=== PATIENT | male | born 1995 | race Caucasian/White ===

== ENCOUNTER 2020-07-20 19:06 | Emergency (ER) | payer BC ==
[2020-07-20] MEDS ORDERED: Lidocaine 1% 10 ML MDV INJECT ONE (19:23)
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
== END 2020-07-20 20:20 | disposition home or self-care (01) ==
LOC: JD.ED 19:06
DX: S81.811A Laceration without foreign body, right lower leg, initial encounter (principal); Z91.048 Other nonmedicinal substance allergy status; V19.9XXA Pedal cyclist (driver) (passenger) injured in unspecified traffic accident, initial encounter
CPT/HCPCS: 12035; 99282; J2001; 99283

== ENCOUNTER 2023-08-01 08:54 | Emergency (ER) | payer BC ==
[2023-08-01 09:34] LABS: BASOPHILS PERCENT AUTO 0.2 % (0.0-1.0); EOSINOPHILS PERCENT AUTO 0.3 % (0.0-6.0); HEMATOCRIT 44.4 % (42.0-52.0); HEMOGLOBIN 15.6 gm/dl (14.0-18.0); IMMATURE GRAN ABSOLUTE AUTO 0.02 K/mm3 (0.00-0.05); IMMATURE GRAN PERCENT AUTO 0.2 % (0.0-0.4); LYMPHOCYTES ABSOLUTE AUTO 2.4 K/mm3 (1.0-4.8); LYMPHOCYTES PERCENT AUTO 25.9 % (24.0-44.0); MEAN CORPUSCULAR HEMOGLOBIN 31.7 pg (28.0-32.0); MEAN CORPUSCULAR HGB CONC 35.1 g/dl (32.0-36.0); MEAN CORPUSCULAR VOLUME 90.2 fl (83.0-99.0); MEAN PLATELET VOLUME 8.6 fl (9.4-12.4); MONOCYTES ABSOLUTE AUTO 0.4 K/mm3 (0.0-0.8); MONOCYTES PERCENT AUTO 3.8 % (0.0-8.0); NEUTROPHILS ABSOLUTE AUTO 6.3 K/mm3 (1.8-7.7); NEUTROPHILS PERCENT AUTO 69.6 % (41.0-71.0); PLATELET COUNT,PLT 312 K/mm3 (150-400); RED BLOOD CELL COUNT 4.92 M/mm3 (4.52-5.90); WHITE BLOOD CELL COUNT,WBC 9.12 K/mm3 (3.9-11.3)
[2023-08-01 09:56] LABS: A/G RATIO 1.1 (1-2); ALANINE AMINOTRANSFERASE,ALT 31 U/L (16-63); ALKALINE PHOSPHATASE 59 U/L (46-116); ANION GAP 13.9 (5-15); ASPARTATE AMNIOTRANSFERASE,AST 15 U/L (15-37); BILIRUBIN TOTAL 0.6 mg/dL (0.2-1.0); BLOOD UREA NITROGEN,BUN 8 mg/dL (7-18); C-REACTIVE PROTEIN <0.2 mg/dL (<1.0); CALCIUM 8.8 mg/dL (8.5-10.1); CARBON DIOXIDE,CO2 26 mEq/L (21-32); CHLORIDE,CL 104 mEq/L (98-107); EST CRCL DRUG DOSING (CG) 117.13 mL/min; ESTIMATED GFR 105 mL/min (>60); GLUCOSE RANDOM 117 mg/dL (70-99); LIPASE 19 U/L (16-77); MAGNESIUM 1.9 mg/dL (1.8-2.4); POTASSIUM,K 3.9 mEq/L (3.5-5.1); PROTEIN TOTAL,TP 7.6 g/dl (6.4-8.2); SODIUM,NA 140 mEq/L (136-145)
[2023-08-01 10:10] LABS: CORONAVIRUS COVID-19 NAA NEGATIVE (NEGATIVE); INFLUENZA A NAA NEGATIVE (NEGATIVE); RESPIRATORY SYNCYTIAL VIR NAA NEGATIVE (NEGATIVE)
[2023-08-01] MEDS ORDERED: Pantoprazole 40 MG Tab.CR PO ONE (11:09)
== END 2023-08-01 09:54 | disposition home or self-care (01) ==
LOC: JD.ED 08:54
DX: A08.4 Viral intestinal infection, unspecified (principal); Z20.822 Contact with and (suspected) exposure to COVID-19; Z86.16 Personal history of COVID-19; Z91.048 Other nonmedicinal substance allergy status
CPT/HCPCS: 0241U; 36415; 74019; 80053; 83690; 83735; 85025; 86140; 99284; A9270; 99283